=== PATIENT | female | born 1995 | race Caucasian/White ===

== ENCOUNTER 2023-03-12 00:38 | Emergency (ER) | payer OTHER ==
[~2023-03-12] VITALS: Ht 152.4 cm; Wt 66.2 kg
[2023-03-12 00:43] VITALS: BP 120/81; PULSE 86; RESP 18; TEMP 98.9; O2SAT 100
[2023-03-12 00:58] VITALS: O2SAT 100
== END 2023-03-12 00:59 ==
LOC: MED 00:38
DX: V49.88XA Car occupant (driver) (passenger) injured in other specified transport accidents, initial encounter; Y93.89 Activity, other specified; Y92.89 Other specified places as the place of occurrence of the external cause; Y99.8 Other external cause status
CPT/HCPCS: 99283